=== PATIENT | female | born 1995 | race American Indian/Alaskan Native ===

== ENCOUNTER 2017-04-30 20:06 | Emergency (ER) | payer SELFPAY ==
[2017-04-30] MEDS ORDERED: NACL 0.9% 500 ML 500 ML IV ONE (22:37)
[2017-04-30] MEDS ORDERED: TYLENOL PO STA (22:37)
[2017-04-30 23:19] LABS: Basophils % (Auto) 0.2 % (0.0-1.8); Hematocrit 40.7 % (30.3-42.9); Hemoglobin 12.9 gm/dl (10.1-14.3); Mean Corpuscular HGB Conc 32 % (30-34); Mean Corpuscular Hemoglobin 28 pg (28-32); Mean Corpuscular Volume 89 fl (79-97); Platelet Count 200 K/mm3 (140-440); Red Blood Count 4.57 M/mm3 (3.65-5.03); Red Cell Distribution Width 13.2 % (13.2-15.2); White Blood Count 14.6 K/mm3 (4.5-11.0)
[2017-04-30 23:30] LABS: INR 1.06 (0.87-1.13)
[2017-04-30 23:33] LABS: Alanine Aminotransferase 11 units/L (7-56); Albumin 4.4 g/dL (3.9-5); Albumin/Globulin Ratio 1.4 %; Alkaline Phosphatase 43 units/L (35-129); Anion Gap 23 mmol/L; BUN/Creatinine Ratio 14; Blood Urea Nitrogen 11 mg/dL (7-17); Calcium 9.1 mg/dL (8.4-10.2); Carbon Dioxide 21 mmol/L (22-30); Chloride 91.6 mmol/L (98-107); Glucose 101 mg/dL (65-100); Lipase 41 units/L (13-60); Potassium 3.5 mmol/L (3.6-5.0); Sodium 132 mmol/L (137-145); Total Protein 7.5 g/dL (6.3-8.2)
[2017-04-30 23:54] LABS: Bacteria,Urine 1+ /HPF (Negative); Bilirubin,Urine NEG (Negative); Blood,Urine MOD (Negative); Ketones,Urine 20 mg/dL (Negative); Leukocyte Esterase,Urine MOD (Negative); Mucus,Urine 2+ /HPF; Nitrite,Urine NEG (Negative); Urobilinogen,Urine < 2.0 mg/dL (<2.0)
[2017-05-01] MEDS ORDERED: ROCEPHIN/NS 2 GM/100 ML 2 GM/100 ML BAG IV ONE (00:03)
--- NOTE | 2017-05-01 00:03 | XRay Report ---
FINAL REPORT EXAM: XR CHEST 1V AP HISTORY: possible Sepsis TECHNIQUE: An AP view of the chest was obtained. FINDINGS: Heart size and mediastinum appear normal. The lungs are clear. The bones and soft tissues do not show any acute changes. IMPRESSION: Negative chest.
--- NOTE | 2017-05-01 00:08 | Emergency Department Report ---
ED Female HPI - General Chief complaint: Abdominal Pain Stated complaint: BACK PAIN Time Seen by Provider: 04/30/17 23:34 Source: patient Mode of arrival: Ambulatory Limitations: No Limitations - History of Present Illness MD Complaint: dysuria Radiation: L flank Severity: moderate Quality: cramping Consistency: now resolved Improves with: none Worsens with: urination Associated Symptoms: fever/chills, dysuria - Related Data Sexually active: Yes Previous Rx's Medication Instructions Recorded Last Taken Type Cyclobenzaprine HCl [Flexeril] 10 mg PO QDAY PRN #10 tablet 08/20/13 Unknown Rx Ibuprofen [Motrin] 800 mg PO TID PRN #12 tablet 08/20/13 Unknown Rx traMADol [Ultram 50 MG tab] 50 mg PO Q6HR PRN #20 tablet 11/30/14 Unknown Rx HYDROcodone/APAP 5-325 [Partridge 1 each PO Q6HR PRN #5 tablet 12/15/14 Unknown Rx 5/325] Allergies Allergy/AdvReac Type Severity Reaction Status Date / Time No Known Allergies Allergy Verified 04/30/17 22:31 ED Review of Systems ROS: Stated complaint: BACK PAIN Other details as noted in HPI ED Past Medical Hx - Past Medical History Previous Medical History?: Yes Additional medical history: "Ovarian cyst" - Surgical History Past Surgical History?: No - Social History Smoking Status: Never Smoker - Medications Home Medications: Home Medications Medication Instructions Recorded Confirmed Last Taken Type Cyclobenzaprine HCl [Flexeril] 10 mg PO QDAY PRN #10 tablet 08/20/13 Unknown Rx Ibuprofen [Motrin] 800 mg PO TID PRN #12 tablet 08/20/13 Unknown Rx traMADol [Ultram 50 MG tab] 50 mg PO Q6HR PRN #20 tablet 11/30/14 Unknown Rx HYDROcodone/APAP 5-325 [Partridge 1 each PO Q6HR PRN #5 tablet 12/15/14 Unknown Rx 5/325] ED Physical Exam - General Limitations: No Limitations General appearance: alert, in no apparent distress, appears intoxicated - Head Head exam: Present: atraumatic, normocephalic - Eye Eye exam: Present: normal appearance, PERRL, EOMI Pupils: Present: normal accommodation - ENT ENT exam: Present: normal exam - Neck Neck exam: Present: normal inspection - Respiratory Respiratory exam: Present: normal lung sounds bilaterally. Absent: respiratory distress, wheezes - Cardiovascular Cardiovascular Exam: Present: tachycardia - GI/Abdominal GI/Abdominal exam: Present: soft. Absent: distended, tenderness - Neurological Exam Neurological exam: Present: alert, altered, oriented X3, CN II-XII intact, normal gait - Psychiatric Psychiatric exam: Present: normal affect, normal mood - Skin Skin exam: Present: warm, dry, intact, normal color. Absent: rash ED Course Vital Signs 04/30/17 04/30/17 22:33 23:30 Temperature 102.9 F H 102.3 F H Pulse Rate 108 H 93 H Respiratory 16 13 Rate Blood Pressure 109/64 Blood Pressure 101/66 [Left] O2 Sat by Pulse 98 100 Oximetry ED Medical Decision Making - Lab Data Result diagrams: 04/30/17 22:55 04/30/17 22:55 - EKG Data -: EKG Interpreted by Me EKG shows normal: sinus rhythm Rate: normal - EKG Data Interpretation: no acute changes, normal EKG Critical care attestation.: If time is entered above; I have spent that time in minutes in the direct care of this critically ill patient, excluding procedure time. ED Disposition Condition: Stable Instructions: Abdominal Pain (ED) Referrals: PRIMARY CARE, [Primary Care Provider] - 3-5 Days
[2017-05-01] MEDS ORDERED: K-DUR PO ONE (00:11)
[2017-05-01] MEDS ORDERED: MOTRIN PO ONE (00:15)
[2017-05-01 01:17] VITALS: BP 97/62
[2017-05-01] MEDS ORDERED: NACL ONE (01:39)
--- NOTE | 2017-05-01 04:03 | Cat Scan Report ---
FINAL REPORT EXAM: CT ABDOMEN PELVIS W CON HISTORY: left flank pyelo TECHNIQUE: Routine axial imaging was obtained of the abdomen and pelvis following the intravenous injection of 100 cc of Omnipaque 300. Sagittal and coronal reconstructions were reviewed. Comparison is made study of 11/30/2014. FINDINGS: The lung bases are clear. Pleural fluid is not seen. The liver, gallbladder, pancreas, spleen, and adrenal glands appear normal. The vascular structures enhance normally. Along the ventral aspect of the lower pole of left kidney is a low-attenuation area involving the cortex and adjacent medullary structures. It measures up to 2.5 cm in diameter. There is mild perinephric stranding around the left kidney. The finding is consistent with localized nephritis of the kidney. A imtiaz abscess though is not seen. The right kidney is unremarkable. There is no evidence of hydronephrosis. The bowel loops are normal in caliber and course. The appendix is not definitely seen. In the pelvis the uterus and bladder appear normal. There is a very small amount of free fluid in the cul-de-sac. The ovaries reveal small follicles bilaterally. The skeletal structures otherwise well maintained. IMPRESSION: Localized area of diminished attenuation within the lower pole of the left kidney anteriorly with perinephric stranding as described. The findings compatible with localized nephritis. No definite abscess formation. After adequate treatment the study should be repeated to confirm resolution of these changes. No evidence of hydronephrosis. Small amount of free fluid in the cul-de-sac.
== END 2017-05-01 04:12 | disposition home or self-care (01) ==
LOC: ED 20:06
DX: R30.0 Dysuria (principal); R10.9 Unspecified abdominal pain
CPT/HCPCS: 36415; 71010; 74177; 80053; 81001; 82140; 82805; 83690; 85025; 85610; 87040; 87076; 87086; 87186; 93005; 93010; 96365; 99285; J0696; J7040; Q9967